=== PATIENT | male | born 1990 | race Hispanic/Latino ===

== ENCOUNTER 2016-07-29 15:12 | Emergency (ER) | payer OTHER ==
[~2016-07-29] VITALS: Ht 175.3 cm; Wt 74.8 kg
[2016-07-29 15:13] VITALS: BP 114/62
[2016-07-29] MEDS ORDERED: KETOROLAC 30 MG/ML VIAL (J1885) IV ONE (15:30)
[2016-07-29] MEDS ORDERED: NS 1,000 ML IV ONE (15:30)
[2016-07-29 15:50] LABS: BASO % 0.7 % (0.0-1.0); EOS # 0.1 K/mm3 (0.0-0.50); EOS % 1.6 % (0.0-3.0); LARGE UNSTAINED CELL # 0.2 K/mm3 (0.0-0.4); LARGE UNSTAINED CELL % 2.8 % (0.0-4.0); LYMPH # 1.9 K/mm3 (1.5-6.5); LYMPH % 31.5 % (24.0-44.0); MEAN CORPUSCULAR HEMOGLOBIN 31.4 pg (27.0-33.0); MEAN CORPUSCULAR HGB CONC 33.8 g/dl (32.0-36.5); MONO # 0.3 K/mm3 (0.0-0.8); MONO % 4.7 % (0.0-5.0); NEUTROPHILS # 3.5 K/mm3 (1.8-7.7); NEUTROPHILS % 58.7 % (36.0-66.0); PLATELET COUNT, AUTOMATED 200 k/mm3 (150-450); RED CELL DISTRIBUTION WIDTH 13.1 % (11.5-14.5)
[2016-07-29 16:13] LABS: ALBUMIN/GLOBULIN RATIO 1.11 (1.00-1.93); ALKALINE PHOSPHATASE 138 U/L (45-117); ALT/SGPT 23 U/L (12-78); AMYLASE 55 U/L (25-115); ANION GAP 6 MEQ/L (8-16); AST/SGOT 15 U/L (15-37); BILIRUBIN,DIRECT 0.2 MG/DL (0.0-0.2); BILIRUBIN,TOTAL 0.9 MG/DL (0.2-1.0); BLOOD UREA NITROGEN 12 MG/DL (7-18); CALCIUM LEVEL 8.3 MG/DL (8.5-10.1); CARBON DIOXIDE LEVEL 31 MEQ/L (21-32); CHLORIDE LEVEL 103 MEQ/L (98-107); CREATININE FOR GFR 1.02 MG/DL (0.70-1.30); GLOMERULAR FILTRATION RATE > 60.0 (>60); GLUCOSE, FASTING 70 MG/DL (70-105); POTASSIUM SERUM 3.7 MEQ/L (3.5-5.1); SODIUM LEVEL 140 MEQ/L (136-145); TOTAL PROTEIN 7.6 GM/DL (6.4-8.2)
[2016-07-29] MEDS ORDERED: OMEP40CA2 PO (16:36)
--- NOTE | 2016-07-29 17:48 | REP ---
CT ABDOMEN AND PELVIS WITHOUT CONTRAST: CT abdomen and pelvis is performed. No IV contrast was administered. The visualized lung bases are clear. The liver, spleen, adrenals, pancreas and kidneys are grossly unremarkable. There is no evidence of renal or ureteral calculus. There is no hydroureteronephrosis. There is no abdominal aortic aneurysm. There is no adenopathy. There is no free air of free fluid. There is no bowel thickening. The appendix is normal. I see no pelvic mass. IMPRESSION: Negative CT abdomen and pelvis without IV contrast. No evidence of renal or ureteral calculus. No hydroureteronephrosis. No evidence of appendicitis. Signed by Daniel Ramesh MD 07/30/2016 04:17 P
== END 2016-07-29 16:42 | disposition home or self-care (01) ==
LOC: M ED 16:02
DX: K29.20 Alcoholic gastritis without bleeding (principal); Z87.891 Personal history of nicotine dependence
CPT/HCPCS: 74176; 80048; 80076; 81001; 82150; 83690; 85025; 96374; 99282; J1885

== ENCOUNTER → 2016-08-21 | Outpatient (REF) | payer OTHER ==
[~2016-08-21] MED LIST: OMEP40CA2 PO
== END ==
LOC: M SMT 12:53
PROVIDERS: ATTEND Nurse Practitioner Family
DX: N50.819 Testicular pain, unspecified (principal)
CPT/HCPCS: 81001; 87086; G0463